=== PATIENT | female | born 1975 | race Caucasian/White ===

== ENCOUNTER 2019-03-18 19:00 | Emergency (ER) | payer BC ==
[2019-03-18 19:40] VITALS: BP 120/73; PULSE 105; TEMP 98.9; BMI 24.0
--- NOTE | 2019-03-18 21:09 | PDOC ---
Documentation entered by Cordelia Strickland SCRIBE, acting as scribe for Gage Zhou MD. Gage Zhou MD: This documentation has been prepared by the santoshibe, Cordelia Strickland SCRIBE, under my direction and personally reviewed by me in its entirety. I confirm that the documentation accurately reflects all work , treatment, procedures, and medical decision making performed by me. History of Present Illness - General Chief Complaint: Rash Stated Complaint: RIGHT HAND BLUE SPOTS - History of Present Illness Initial Comments: 03/18/19 19:54 The patient is a 44-year-old female who presents to the emergency department with a right-hand discoloration. The patient reports she has noticed a bluish discoloration to her right hand, primarily around the fingers and knuckles, that has been progressing up the hand. The patient reports pain and discomfort to the hand, with intermittent episodes of tingling. Denies trauma or injury to the hand. However, the patient reports about a month ago she did injure her back from turning the wrong way and reports since the incident she does have pins and needles sensation to the hand while sleeping. The patient reports washing her hand a couple of times, without improvement. 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 MEDICATIONS: reviewed ALLERGIES: As per nursing notes PCP: Dr. Piedra. Review of system: General: No fevers or chills, no weakness, no weight loss HEENT: No change in vision. No sore throat,. No ear pain CardioVascular: No chest pain or shortness of breath Respiratory:No cough, or wheezing. Gastrointestinal: no nausea, vomiting, diarrhea or constipation, No rectal bleeding Genitourinary: No dysuria, hematuria, or frequency Musculoskeletal: No joint or muscle pain or swelling Neurologic: No headache, vertigo, dizziness or loss of consciousness Psychiatric: nor depression Skin: +discoloration to the right hand. No rashes or easy bruising Endocrine: no increased thirst or abnormal weight change Allergic: no skin or latex allergy All other systems reviewed and normal Physical exam: GENERAL: The patient is awake, alert, and fully oriented, in no acute distress. HEAD: Normal with no signs of trauma. EYES: Pupils equal, round and reactive to light, extraocular movements intact, sclera anicteric, conjunctiva clear. EXTREMITIES: Right hand: Mild discoloration to the skin of the dorsum of the hand, Capillary refill less than 2 sec, ulnar and radial pulses normal, no tenderness, swelling, erythema or increased warmth, no measurable tactile temperature change between the right or left hand, full range of motion. NEUROLOGICAL: Normal speech, normal gait. PSYCH: Normal mood, normal affect. SKIN: Warm, Dry, normal turgor, no rashes or lesions noted. Past History - Past Medical History Allergies/Adverse Reactions: Allergies Allergy/AdvReac Type Severity Reaction Status Date / Time No Known Allergies Allergy Verified 03/18/19 19:44 Home Medications: Ambulatory Orders Dextroamphetamine/Amphetamine [Adderall 10 mg Tablet] 10 mg PO DAILY 03/18/19 Escitalopram Oxalate [Lexapro -] 20 mg PO DAILY 03/18/19 Thyroid Disease: Yes - Psycho Social/Smoking Cessation Hx Smoking Status: Yes Smoking History: Current every day smoker Number of Cigarettes Smoked Daily: 10 Discharge - Discharge Information Problems reviewed: Yes Clinical Impression/Diagnosis: Discoloration of skin of hand Condition: Good Disposition: HOME - Admission No - Follow up/Referral Referrals: Skip Piedra MD [Primary Care Provider] - - Patient Discharge Instructions Additional Instructions: Follow-up with your primary care doctor call for an appointment on Wednesday also with an orthopedist. Return to the emergency department immediately with ANY new, persistent or worsening symptoms. Continue any medications as previously prescribed by your physician. You should follow up with your primary doctor as soon as possible regarding today's emergency department visit. . Please make sure your doctor reviews the results of your emergency evaluation. Thank you for coming to the Emergency Department today for your care. It was a pleasure to see you today. Please note that your evaluation is INCOMPLETE until you follow-up with your doctor. - Post Discharge Activity
== END 2019-03-18 19:47 | disposition home or self-care (01) ==
LOC: FER 19:00
DX: R23.8 Other skin changes (principal); F17.210 Nicotine dependence, cigarettes, uncomplicated; E07.9 Disorder of thyroid, unspecified
CPT/HCPCS: 99281-25